=== PATIENT | male | born 1945 | race Native Hawaiian/Other Pacific Islander ===

== ENCOUNTER 2018-05-05 13:47 | Outpatient (CLI) | payer OTHER ==
[2018-05-05 14:12] LABS: POTASSIUM 4.2 mmol/L (3.6-5.2)
== END 2018-05-05 23:58 | disposition home or self-care (01) ==
LOC: LABW 13:47
PROVIDERS: Internal Medicine Cardiovascular Disease
DX: Z79.899 Other long term (current) drug therapy (principal); R06.09 Other forms of dyspnea
CPT/HCPCS: 36415; 80048; 83880